=== PATIENT | male | born 1970 | race Caucasian/White ===

== ENCOUNTER → 2016-08-19 | Outpatient (CLI) | payer BC ==
[2014-03-17 07:45] VITALS: BP 128/86
[~2016-08-19] MED LIST: ASPI-630 PO; BACI28.44 TP; CARV6.25 PO; CLOP75TA PO; INSU100V13 SQ; Oxycodone Hcl/Acetaminophen PO
--- NOTE | 2016-08-19 14:11 | RAD ---
Examination: CT right foot without contrast History: History of right foot fracture comparison: None available PQRS Compliance Statement: One or more of the following individualized dose reduction techniques were utilized for this examination: 1. Automated exposure control 2. Adjustment of the mA and/or kV according to patient size 3. Use of iterative reconstruction technique Findings: There is nondisplaced fracture of the posterior malleolus of the distal tibia. The ankle mortise appears intact. There is a well formed bone density identified distal to lateral malleolus could be old avulsion fracture or unfused ossicle. Tiny bony densities identified medial to the lateral malleolus posteriorly could be avulsion fracture fragments or soft tissue calcifications. There is medial displaced fracture of the proximal shaft of the second metatarsal. There is mild widening of the Lisfranc joint between the first metatarsal and the second metatarsal. The base of the second metatarsal is laterally tilted in relation to the intermediate cuneiform with widening of the medial portion of the second metatarsophalangeal joint. Comminuted fracture of the base of the third metatarsal and the fourth metatarsal. There is minimal displaced oblique fractures of the neck of the fourth and fifth metatarsals. There is fracture of the plantar aspect of the lateral cuneiform bone. There is subtle fracture of the inferior aspect of the intermediate cuneiform bone. Moderate soft tissue swelling identified in the midfoot with fat stranding throughout the foot. The distal attachment of the Achilles tendon to the calcaneus grossly appears intact. The attachment of the peroneal tendons, flexor tendons, extensor compartment tendons grossly unremarkable. Impression: 1. Multiple fractures of the 2nd-5th metatarsals and the intermediate and lateral cuneiform as described. There is medial displaced fracture of the proximal shaft of the second metatarsal. There is mild widening of the Lisfranc joint between the first metatarsal and the second metatarsal, suspicious for Lisfranc fracture dislocation. The base of the second metatarsal is laterally tilted in relation to the intermediate cuneiform with widening of the medial portion of the second metatarsophalangeal joint. Correlate clinically. 2. Nondisplaced fracture posterior malleolus of the distal tibia. 3. There is a well formed bone density identified distal to lateral malleolus could be old avulsion fracture or unfused ossicle. Tiny bony densities identified medial to the lateral malleolus posteriorly could be avulsion fracture fragments or soft tissue calcifications.
== END | disposition home or self-care (01) ==
LOC: CT 12:54
PROVIDERS: ATTEND Orthopaedic Surgery Sports Medicine
DX: S92.901A Unspecified fracture of right foot, initial encounter for closed fracture (principal); X58.XXXA Exposure to other specified factors, initial encounter; Y93.89 Activity, other specified; Y92.89 Other specified places as the place of occurrence of the external cause; Y99.8 Other external cause status
CPT/HCPCS: 73700